=== PATIENT | female | born 1960 | race Caucasian/White ===

== ENCOUNTER → 2016-12-13 | Outpatient (CLI) | payer OTHER ==
[~2016-12-13] MED LIST: ACET-1757 PO; BISA10SU2 PR; BUDE10.2 IH; BUTA1CAP28 PO; CLON-364 PO; DEXA4TAB PO; DOCU-30 PO; GADOBUTROL 7.5 MMOL/7.5 ML PFS ONE; LANS30CA PO; LEVE500T8 PO; MAGN400O4 PO; MINO100C PO; PANT40TA5 PO; PROM25AM2 IM; SENN1TAB35 PO; SIMV20TA3 PO; SUMA50TA4 PO; TEMA15CA PO; ZAFI20TA12 PO
== END | disposition home or self-care (01) ==
LOC: CFH 08:27
PROVIDERS: ATTEND Internal Medicine Hematology & Oncology
DX: C71.9 Malignant neoplasm of brain, unspecified (principal)
CPT/HCPCS: 70553; A9585

== ENCOUNTER → 2017-03-21 | Outpatient (CLI) | payer OTHER | END | disposition home or self-care (01) | LOC: RAD 12:48 | PROVIDERS: ATTEND Internal Medicine Hematology & Oncology | DX: C71.9 Malignant neoplasm of brain, unspecified (principal) | CPT/HCPCS: 70553; A9585 ==

== ENCOUNTER → 2017-09-05 | Outpatient (CLI) | payer OTHER ==
[~2017-09-05] MED LIST changes: +DOCU-131 PO; -DOCU-30 PO; -MAGN400O4 PO; +MAGN400O7 PO
== END | disposition home or self-care (01) ==
LOC: CFH 11:57
PROVIDERS: ATTEND Internal Medicine Hematology & Oncology
DX: C71.9 Malignant neoplasm of brain, unspecified (principal); Z98.890 Other specified postprocedural states
CPT/HCPCS: 70553; A9585

== ENCOUNTER → 2018-04-23 | Outpatient (CLI) | payer OTHER | END | disposition home or self-care (01) | LOC: CFH 08:14 | PROVIDERS: ATTEND Internal Medicine Hematology & Oncology | DX: G93.89 Other specified disorders of brain (principal); R90.82 White matter disease, unspecified; C71.9 Malignant neoplasm of brain, unspecified; J44.9 Chronic obstructive pulmonary disease, unspecified | CPT/HCPCS: 70553; A9585 ==

== ENCOUNTER → 2018-06-24 | Outpatient (CLI) | payer OTHER ==
[~2018-06-24] MED LIST changes: -CLON-364 PO; +CLON0.5T11 PO
== END | disposition home or self-care (01) ==
LOC: CFH 09:56
PROVIDERS: ATTEND Internal Medicine Hematology & Oncology
DX: G93.89 Other specified disorders of brain (principal); C71.9 Malignant neoplasm of brain, unspecified; J44.9 Chronic obstructive pulmonary disease, unspecified
CPT/HCPCS: 70553; A9585

== ENCOUNTER → 2018-10-22 | Outpatient (CLI) | payer OTHER ==
[~2018-10-22] MED LIST changes: +GADOBUTROL 10 MMOL/10 ML PFS ONE; -GADOBUTROL 7.5 MMOL/7.5 ML PFS ONE
== END | disposition home or self-care (01) ==
LOC: CFH 13:10
PROVIDERS: ATTEND Internal Medicine Hematology & Oncology
DX: C71.9 Malignant neoplasm of brain, unspecified (principal); G93.89 Other specified disorders of brain
CPT/HCPCS: 70553; A9585

== ENCOUNTER → 2019-02-10 | Outpatient (CLI) | payer OTHER ==
[~2019-02-10] MED LIST changes: -GADOBUTROL 10 MMOL/10 ML PFS ONE; +GADOBUTROL 7.5 MMOL/7.5 ML PFS ONE
== END | disposition home or self-care (01) ==
LOC: CFH 15:24
PROVIDERS: ATTEND Internal Medicine Hematology & Oncology
DX: C71.1 Malignant neoplasm of frontal lobe (principal); G93.89 Other specified disorders of brain
CPT/HCPCS: 70553; A9585

== ENCOUNTER → 2019-02-27 | Outpatient (CLI) | payer OTHER ==
[~2019-02-27] MED LIST changes: +ALBU8.5H8 INH; +BUDE10.2 INH; -GADOBUTROL 7.5 MMOL/7.5 ML PFS ONE; +LEVE500T53 PO; +SCOP1PAT11 TD
[2019-02-27 12:28] LABS: BASOPHILS # (AUTO) 0.02 x10^3/uL (0-0.1); BASOPHILS % (AUTO) 0 % (0-1); EOSINOPHILS # (AUTO) 0.25 x10^3/uL (0-0.4); EOSINOPHILS % (AUTO) 4 % (1-7); LYMPHOCYTES # (AUTO) 1.94 x10^3/uL (1-3.4); LYMPHOCYTES % (AUTO) 33 % (22-44); MD NO; MEAN CORPUSCULAR HEMOGLOBIN 31.3 pg (27.0-34.8); MEAN CORPUSCULAR HGB CONC 32.5 g/dL (32.4-35.8); MEAN CORPUSCULAR VOLUME 96.2 fL (80-100); MEAN PLATELET VOLUME 6.9 fL (7.4-10.4); MONOCYTES # (AUTO) 0.44 x10^3/uL (0.2-0.8); MONOCYTES % (AUTO) 8 % (2-9); NEUTROPHILS # (AUTO) 3.27 x10^3/uL (1.8-6.8); NEUTROPHILS % (AUTO) 55 % (42-75); PLATELET COUNT 176 x10^3/uL (130-400)
[2019-02-27 12:36] LABS: INTERNATIONAL NORMALIZED RATIO 0.91 (0.93-1.1); PROTHROMBIN TIME 9.6 Seconds (9.6-11.5)
[2019-02-27 12:39] LABS: CHLORIDE 110 mmol/L (98-107)
[2019-02-27 12:47] LABS: MICROSCOPIC AUTO
[2019-02-27 12:49] LABS: ALANINE AMINOTRANSFERASE 28 U/L (12-78); ALBUMIN 3.9 g/dL (3.4-5.0); ALKALINE PHOSPHATASE 66 U/L (45-117); ANION GAP 4 mmol/L (5-15); BILIRUBIN,TOTAL 0.4 mg/dL (0.2-1.0); CALCIUM 9.3 mg/dL (8.5-10.1); CREATININE 1.09 mg/dL (0.55-1.02); TOTAL PROTEIN 7.5 g/dL (6.4-8.2)
[2019-02-27 14:04] LABS: CULTURE INDICATED? YES
== END | disposition home or self-care (01) ==
LOC: STAR 10:47
PROVIDERS: ATTEND Neurological Surgery
DX: Z01.818 Encounter for other preprocedural examination (principal); R91.8 Other nonspecific abnormal finding of lung field; C71.9 Malignant neoplasm of brain, unspecified
CPT/HCPCS: 36415; 71046; 80053; 81001; 85025; 85610; 85730; 87086; 93005

== ENCOUNTER 2019-04-07 12:00 | Inpatient (IN) | payer OTHER ==
[~2019-04-07] VITALS: Ht 167.6 cm; Wt 68.1 kg
[~2019-04-07 12:00] MED LIST changes: +DEXA4TAB66 PO
[2019-04-07] MEDS ORDERED: SODIUM CHLORIDE 0.9% 1,000 ML IV ONE (12:41)
--- NOTE | 2019-04-07 12:44 | NUR ---
Pt arrived by family; pt has history of recurrent glioblastoma; worsening drinking; worsening mentation (decrease vocalizations) and decline in fluid intake has caused family to worry; provider to bedside; discussed different treatment options; agreeable to basic labs and worries over specific scans and prefer to have them discuss with oncologist; vss; patient nonverbal at this time only responds to groans; and doesn't follow commands.
[2019-04-07] MEDS ORDERED: SODIUM CHLORIDE FLUSH 10ML SYR IVF ONE (13:00)
--- NOTE | 2019-04-07 13:07 | NUR ---
Pt to CT
--- NOTE | 2019-04-07 13:38 | NUR ---
UA COLLECTED VIA STRAIGHT CATH AND SENT TO LAB.
[2019-04-07 13:52] LABS: MICROSCOPIC NOT IND
[2019-04-07 13:56] LABS: CULTURE INDICATED? NO
[2019-04-07 14:09] LABS: ALANINE AMINOTRANSFERASE 33 U/L (12-78); ANION GAP 5 mmol/L (5-15); CALCIUM 8.3 mg/dL (8.5-10.1); CHLORIDE 107 mmol/L (98-107)
[2019-04-07 14:10] LABS: INTERNATIONAL NORMALIZED RATIO 0.89 (0.93-1.1)
[2019-04-07 14:12] LABS: ALKALINE PHOSPHATASE 56 U/L (45-117); BILIRUBIN,TOTAL 0.6 mg/dL (0.2-1.0); CREATININE 0.98 mg/dL (0.55-1.02); TOTAL PROTEIN 6.4 g/dL (6.4-8.2)
--- NOTE | 2019-04-07 14:37 | NUR ---
Eric vilchis in [facility] - 04/07/19 at 1445 by [email or web address] all results back at this time. chart up for recheck.
[2019-04-07 14:40] LABS: PROTHROMBIN TIME 9.4 Seconds (9.6-11.5)
[2019-04-07 14:43] LABS: MEAN CORPUSCULAR HEMOGLOBIN 31.9 pg (27.0-34.8); MEAN CORPUSCULAR HGB CONC 33.5 g/dL (32.4-35.8); MEAN CORPUSCULAR VOLUME 95.3 fL (80-100); MEAN PLATELET VOLUME 6.9 fL (7.4-10.4); PLATELET COUNT 75 x10^3/uL (130-400); RED BLOOD COUNT 4.94 x10^6/uL (3.82-5.3); RED CELL DISTRIBUTION WIDTH 14.9 % (9.6-15.2)
[2019-04-07 14:45] LABS: BASOPHILS # (AUTO) 0.02 x10^3/uL (0-0.1); BASOPHILS % (AUTO) 0 % (0-1); EOSINOPHILS # (AUTO) 0.08 x10^3/uL (0-0.4); EOSINOPHILS % (AUTO) 1 % (1-7); LYMPHOCYTES % (AUTO) 16 % (22-44); MD SCAN; MONOCYTES # (AUTO) 0.59 x10^3/uL (0.2-0.8); MONOCYTES % (AUTO) 9 % (2-9); NEUTROPHILS # (AUTO) 4.94 x10^3/uL (1.8-6.8); NEUTROPHILS % (AUTO) 73 % (42-75)
--- NOTE | 2019-04-07 14:56 | NUR ---
Family at bedside; patient calm; no understandable verbalizations; blood pressures readings artificially high as patient insists on lying on blood pressure cuff; attempts to reposition are declined by family. Family is calm and reports no distress at this time; no needs.
[2019-04-07] MEDS ORDERED: SODIUM CHLORIDE FLUSH 10ML SYR IVF PRN (15:30)
[2019-04-07] MEDS ORDERED: DEXA2TAB PO (16:14)
[2019-04-07] MEDS ORDERED: ALBU8.5H8 INH (16:24)
[2019-04-07] MEDS ORDERED: LANS30TA8 PO (16:24)
[2019-04-07] MEDS ORDERED: SIMV20TA3 PO (16:24)
[2019-04-07] MEDS ORDERED: LEVE500T8 PO (16:24)
[2019-04-07] MEDS ORDERED: ZAFI20TA12 PO (16:24)
[2019-04-07] MEDS ORDERED: BUDE10.2 INH (16:24)
[2019-04-07] MEDS ORDERED: BISACODYL 10 MG SUPP PR PRN (18:00)
[2019-04-07] MEDS ORDERED: ONDANSETRON 2MG/ML, 2ML IVPush PRN (18:00)
[2019-04-07] MEDS ORDERED: ACETAMINOPHEN 325 MG TABLET PO PRN (18:00)
[2019-04-07] MEDS ORDERED: ENALAPRILAT 1.25 MG/ML, 2ML IVPush PRN (18:00)
[2019-04-07] MEDS ORDERED: LABETALOL 5 MG/ML SYRINGE IVPush PRN (18:00)
[2019-04-07] MEDS ORDERED: HALOPERIDOL 1 MG TABLET PO PRN (18:00)
[2019-04-07] MEDS ORDERED: morphine SULFATE 10 MG/ML, 1ML IVPush PRN (18:00)
[2019-04-07] MEDS ORDERED: GABAPENTIN 300 MG CAPSULE PO PRN (18:00)
[2019-04-07] MEDS ORDERED: POLYETHYLENE GLYCOL 17 GM PACKET PO PRN (18:00)
[2019-04-07] MEDS: LACTULOSE 10 GM/15 ML UDC PO PRN (18:10)
[2019-04-07 19:04] VITALS: BP 141/92
[2019-04-07] MEDS: SIMVASTATIN 20 MG TABLET PO SCH (20:11)
[2019-04-07] MEDS: ZAFIRLUKAST 20 MG TABLET PO SCH (20:11)
[2019-04-07] MEDS: LEVETIRACETAM 500 MG TABLET PO SCH (20:11)
[2019-04-07] MEDS: HALOPERIDOL 5 MG TABLET PO PRN (20:12)
[2019-04-08 00:03] VITALS: BP 145/98
[2019-04-08] MEDS: SODIUM CHLORIDE 0.9% 1,000 ML IV SCH ×2 (06:32→17:00)
[2019-04-08 06:38] LABS: ALANINE AMINOTRANSFERASE 32 U/L (12-78); ANION GAP 8 mmol/L (5-15); CALCIUM 8.4 mg/dL (8.5-10.1); CHLORIDE 111 mmol/L (98-107); CREATININE 0.91 mg/dL (0.55-1.02)
[2019-04-08 06:40] LABS: ALKALINE PHOSPHATASE 58 U/L (45-117); BILIRUBIN,TOTAL 0.7 mg/dL (0.2-1.0)
[2019-04-08 06:52] LABS: BASOPHILS # (AUTO) 0.01 x10^3/uL (0-0.1); BASOPHILS % (AUTO) 0 % (0-1); EOSINOPHILS # (AUTO) 0.04 x10^3/uL (0-0.4); EOSINOPHILS % (AUTO) 1 % (1-7); LYMPHOCYTES # (AUTO) 0.94 x10^3/uL (1-3.4); LYMPHOCYTES % (AUTO) 18 % (22-44); MD SCAN; MEAN CORPUSCULAR HEMOGLOBIN 31.1 pg (27.0-34.8); MEAN CORPUSCULAR VOLUME 94.3 fL (80-100); MEAN PLATELET VOLUME 6.5 fL (7.4-10.4); MONOCYTES # (AUTO) 0.48 x10^3/uL (0.2-0.8); MONOCYTES % (AUTO) 9 % (2-9); NEUTROPHILS # (AUTO) 3.65 x10^3/uL (1.8-6.8); NEUTROPHILS % (AUTO) 71 % (42-75); PLATELET COUNT 70 x10^3/uL (130-400); RED BLOOD COUNT 4.83 x10^6/uL (3.82-5.3); RED CELL DISTRIBUTION WIDTH 14.9 % (9.6-15.2)
[2019-04-08 07:25] VITALS: BP 141/91
[2019-04-08] MEDS: LACTULOSE 10 GM/15 ML UDC PO PRN (08:20)
[2019-04-08] MEDS: SENNA/DOCUSATE TABLET PO SCH (08:21)
[2019-04-08] MEDS: ZAFIRLUKAST 20 MG TABLET PO SCH ×2 (08:21→19:24)
[2019-04-08] MEDS: DEXAMETHASONE 4 MG TABLET PO SCH (08:21)
[2019-04-08] MEDS: LEVETIRACETAM 500 MG TABLET PO SCH ×2 (08:21→19:24)
[2019-04-08] MEDS ORDERED: LORazepam 2 MG/ML, 1ML IVPush ONE (10:00)
[2019-04-08] MEDS: HALOPERIDOL 5 MG TABLET PO PRN ×2 (10:54→19:24)
[2019-04-08 15:13] VITALS: BP 147/98
[2019-04-08 18:41] VITALS: BP 109/72
[2019-04-08] MEDS: SIMVASTATIN 20 MG TABLET PO SCH (19:24)
[2019-04-09 03:34] VITALS: BP 136/85
[2019-04-09 04:56] LABS: MEAN CORPUSCULAR HEMOGLOBIN 31.3 pg (27.0-34.8); MEAN CORPUSCULAR HGB CONC 32.8 g/dL (32.4-35.8); MEAN CORPUSCULAR VOLUME 95.2 fL (80-100); MEAN PLATELET VOLUME 6.9 fL (7.4-10.4); PLATELET COUNT 66 x10^3/uL (130-400)
[2019-04-09 05:01] LABS: ANION GAP 7 mmol/L (5-15); CALCIUM 8.7 mg/dL (8.5-10.1); CHLORIDE 113 mmol/L (98-107); CREATININE 0.93 mg/dL (0.55-1.02)
[2019-04-09 05:45] LABS: BASOPHILS # (AUTO) 0.01 x10^3/uL (0-0.1); BASOPHILS % (AUTO) 0 % (0-1); EOSINOPHILS # (AUTO) 0.02 x10^3/uL (0-0.4); EOSINOPHILS % (AUTO) 1 % (1-7); LYMPHOCYTES % (AUTO) 20 % (22-44); MD SCAN; MONOCYTES # (AUTO) 0.47 x10^3/uL (0.2-0.8); MONOCYTES % (AUTO) 10 % (2-9); NEUTROPHILS # (AUTO) 3.43 x10^3/uL (1.8-6.8); NEUTROPHILS % (AUTO) 70 % (42-75)
[2019-04-09] MEDS ORDERED: LACTULOSE 20 GM/30 ML UDC PO PRN (08:00)
[2019-04-09] MEDS ORDERED: POLY17PO5 PO (08:03)
[2019-04-09] MEDS ORDERED: BISA10SU13 PR (08:03)
[2019-04-09] MEDS ORDERED: LACT20SO13 PO (08:03)
[2019-04-09] MEDS ORDERED: SENN1TAB19 PO (08:03)
[2019-04-09 08:26] VITALS: BP 116/79
[2019-04-09] MEDS ORDERED: FAMOTIDINE 20 MG TABLET PO SCH (09:00)
[2019-04-09] MEDS: DEXAMETHASONE 4 MG TABLET PO SCH (09:30)
[2019-04-09] MEDS: SENNA/DOCUSATE TABLET PO SCH (09:30)
[2019-04-09] MEDS: ZAFIRLUKAST 20 MG TABLET PO SCH (09:30)
[2019-04-09] MEDS: LEVETIRACETAM 500 MG TABLET PO SCH (09:30)
[2019-04-09] MEDS ORDERED: CALCIUM CARBONATE 500 MG TAB.CHEW PO PRN (10:00)
== END 2019-04-09 12:09 | disposition home health service (06) | DRG 70 ==
LOC: ED 14:04 → EDIP 15:01 → UNDOADMIN 15:01 → 3NW 15:36 → ED 15:36 → EDIP 15:36 → DCLOUNGE 04-09 12:00
PROVIDERS: ADMIT Hospitalist; ATTEND Internal Medicine
DX: G93.41 Metabolic encephalopathy (principal); G93.6 Cerebral edema; C71.1 Malignant neoplasm of frontal lobe; R47.01 Aphasia; K56.41 Fecal impaction; T45.1X5A Adverse effect of antineoplastic and immunosuppressive drugs, initial encounter; F32.9 Major depressive disorder, single episode, unspecified; G43.909 Migraine, unspecified, not intractable, without status migrainosus; Z66 Do not resuscitate; J45.20 Mild intermittent asthma, uncomplicated; F41.9 Anxiety disorder, unspecified; E86.0 Dehydration; E78.5 Hyperlipidemia, unspecified; D69.59 Other secondary thrombocytopenia; Z95.828 Presence of other vascular implants and grafts; Z86.718 Personal history of other venous thrombosis and embolism; Z92.3 Personal history of irradiation; Z85.841 Personal history of malignant neoplasm of brain; Y92.89 Other specified places as the place of occurrence of the external cause; Z88.2 Allergy status to sulfonamides; Z88.8 Allergy status to other drugs, medicaments and biological substances
CPT/HCPCS: 36415; 70450; 74018; 74022; 80048; 80053; 81003; 83690; 83735; 84100; 85025; 85610; 85730; G0378; 92523-GN; J7030

== ENCOUNTER 2019-05-06 07:51 | Emergency (ER) | payer MEDICARE, OTHER ==
[~2019-05-06] VITALS: Ht 170.2 cm; Wt 72.7 kg
[2019-05-06 11:09] VITALS: BP 129/86
== END 2019-05-06 12:10 | disposition home or self-care (01) ==
LOC: ED 09:56
DX: G40.209 Localization-related (focal) (partial) symptomatic epilepsy and epileptic syndromes with complex partial seizures, not intractable, without status epilepticus (principal); R29.810 Facial weakness; R42 Dizziness and giddiness; F41.1 Generalized anxiety disorder; F32.9 Major depressive disorder, single episode, unspecified; Z85.841 Personal history of malignant neoplasm of brain; Z86.718 Personal history of other venous thrombosis and embolism
CPT/HCPCS: 36415; 70450; 70496; 70498; 80047; 80185; 81003; 82962; 84484; 85025; 85610; 85730; 93005; 96365; 99284; J1953; Q9967; 96360

== ENCOUNTER 2019-08-07 13:34 | Emergency (ER) | payer OTHER ==
[~2019-08-07] VITALS: Ht 167.6 cm; Wt 73.3 kg
[~2019-08-07 13:34] MED LIST changes: -ACET-1757 PO; +ACET-2065 PO; +BISA10SU14 PR; -BISA10SU2 PR; +BISA10SU4 PR; +DEXA2TAB PO; +LACT20SO13 PO; +LANS30TA8 PO; -MINO100C PO; +MINO100C61 PO; +OMEP-110 PO; +POLY17PO5 PO; +SENN-193 PO
[2019-08-07 13:50] VITALS: BP 141/89
--- NOTE | 2019-08-07 14:35 | NUR ---
PT RECENTLY FELL AND BIT LIP ON LANDING. PRESENT WITH SWOLLEN BOTTOM LIP. NADN. RESTING ON GURNEY. FAMILY AT BEDSIDE. HAS PAIN IN HER BACK.
== END 2019-08-07 15:18 | disposition home or self-care (01) ==
LOC: ED 15:12
DX: S29.012A Strain of muscle and tendon of back wall of thorax, initial encounter (principal); G89.11 Acute pain due to trauma; F32.9 Major depressive disorder, single episode, unspecified; Z86.73 Personal history of transient ischemic attack (TIA), and cerebral infarction without residual deficits; W01.0XXA Fall on same level from slipping, tripping and stumbling without subsequent striking against object, initial encounter; Y93.89 Activity, other specified; Y92.89 Other specified places as the place of occurrence of the external cause; Y99.8 Other external cause status
CPT/HCPCS: 72072; 99283

== ENCOUNTER 2019-08-28 11:14 | Emergency (ER) | payer OTHER ==
[~2019-08-28] VITALS: Ht 167.6 cm; Wt 73.7 kg
--- NOTE | 2019-08-28 11:54 | NUR ---
DR. BRIGGS AT BEDSIDE. PT C/O TABARES WITH NAUSEA SINCE 9 AM. PT HAS HX OF GLIOBLASTOMA DIAGNOSED 3.5 YEARS AGO BEING TREATED NOW WITH CHEMO AND RADIATION. WAITING FOR MD ORDERS. PT AMBULATED TO THE ROOM.
[2019-08-28] MEDS ORDERED: HYDROmorphone 1 MG/ML, 1ML INJ IM ONE (12:00)
[2019-08-28] MEDS ORDERED: ONDANSETRON ODT 8 MG PO ONE (12:00)
[2019-08-28] MEDS ORDERED: HYDROmorphone 1 MG/ML, 1ML VIAL ONE (12:07)
[2019-08-28] MEDS ORDERED: ONDANSETRON ODT 8 MG ONE (12:07)
--- NOTE | 2019-08-28 12:16 | NUR ---
PT MEDICATED ORDERED. WAITING FOR CT.
--- NOTE | 2019-08-28 12:23 | NUR ---
REPORT RECIEVED FROM MARTHA ISSA. ASSUMED CARE OF PT.
[2019-08-28 13:29] VITALS: BP 111/76
== END 2019-08-28 14:30 | disposition home or self-care (01) ==
LOC: ED 13:13
DX: R51 Headache (principal); Z86.73 Personal history of transient ischemic attack (TIA), and cerebral infarction without residual deficits; Z86.718 Personal history of other venous thrombosis and embolism
CPT/HCPCS: 70450; 96372; 99284; J1170; Q0162

== ENCOUNTER 2019-10-03 21:11 | Emergency (ER) | payer MEDICARE, OTHER ==
[~2019-10-03] VITALS: Ht 165.1 cm; Wt 72.0 kg
--- NOTE | 2019-10-03 21:24 | NUR ---
PT BIBA TO ED FROM HOME W MOTHER. GOT UP, NEEDED ASSISTANCE TO BATHROOM, INCONTINENT OF URINE. ALSO DROOLED A LITTLE. BASELINE CONFUSED R/T GLIOBLASTOMA AND CRANI. PER MOM AT BASELINE NOW. VSS. CRUMB IN ROOM FOR EVAL. LABS/UA/PROBABLY ADMITTED. CALL YO/SIDE RAILS.
[2019-10-03] MEDS ORDERED: SODIUM CHLORIDE 0.9% 1,000ML IVBOLUS ONE (21:30)
[2019-10-03] MEDS ORDERED: SODIUM CHLORIDE FLUSH 10ML SYR IVF ONE (21:30)
--- NOTE | 2019-10-03 22:00 | NUR ---
piv est ivf infusing pt to rad. plan for straight cath. family at bedside. updated on poc. as
--- NOTE | 2019-10-03 22:04 | NUR ---
bandaid on L arm-bruise, broken skin. pt/fam don't know what caused it. small amt yellow exudate. as
[2019-10-03 22:17] LABS: ALBUMIN 3.6 g/dL (3.4-5.0); ANION GAP 3 mmol/L (5-15); CALCIUM 9.2 mg/dL (8.5-10.1); CHLORIDE 111 mmol/L (98-107)
[2019-10-03 22:18] LABS: CREATININE 1.05 mg/dL (0.55-1.02)
[2019-10-03 22:24] LABS: MEAN CORPUSCULAR HEMOGLOBIN 31.8 pg (27.0-34.8); MEAN CORPUSCULAR HGB CONC 32.4 g/dL (32.4-35.8); MEAN CORPUSCULAR VOLUME 98.2 fL (80-100); MEAN PLATELET VOLUME 6.7 fL (7.4-10.4); PLATELET COUNT 93 x10^3/uL (130-400); RED BLOOD COUNT 4.92 x10^6/uL (3.82-5.3); RED CELL DISTRIBUTION WIDTH 16.1 % (9.6-15.2)
--- NOTE | 2019-10-03 22:26 | NUR ---
straight cathed, ua sent. as
[2019-10-03 22:33] LABS: MICROSCOPIC NOT IND
[2019-10-03 22:41] LABS: CULTURE INDICATED? NO
[2019-10-03 22:54] LABS: BASOPHILS # (AUTO) 0.01 x10^3/uL (0-0.1); BASOPHILS % (AUTO) 0 % (0-1); EOSINOPHILS # (AUTO) 0.09 x10^3/uL (0-0.4); EOSINOPHILS % (AUTO) 1 % (1-7); LYMPHOCYTES # (AUTO) 2.48 x10^3/uL (1-3.4); LYMPHOCYTES % (AUTO) 38 % (22-44); MD SCAN; MONOCYTES # (AUTO) 0.55 x10^3/uL (0.2-0.8); MONOCYTES % (AUTO) 8 % (2-9); NEUTROPHILS # (AUTO) 3.47 x10^3/uL (1.8-6.8); NEUTROPHILS % (AUTO) 53 % (42-75)
[2019-10-03 23:33] VITALS: BP 153/95
== END 2019-10-04 00:12 | disposition home or self-care (01) ==
LOC: ED 22:47
DX: R41.82 Altered mental status, unspecified (principal); Z85.841 Personal history of malignant neoplasm of brain; Z86.73 Personal history of transient ischemic attack (TIA), and cerebral infarction without residual deficits; Z86.718 Personal history of other venous thrombosis and embolism
CPT/HCPCS: 36415; 70450; 80048; 81003; 82040; 85025; 99284; J7030

== ENCOUNTER 2019-10-14 10:26 | Outpatient (CLI) | payer MEDICARE ==
[~2019-10-14 10:26] MED LIST changes: +LEVE100S6 PO
== END 2019-10-14 23:59 | disposition home or self-care (01) ==
LOC: CFH 10:26
PROVIDERS: ATTEND Internal Medicine Hematology & Oncology
DX: Z02.9 Encounter for administrative examinations, unspecified (principal)

== ENCOUNTER 2019-10-14 14:24 | Outpatient (CLI) | payer MEDICARE | END 2019-10-14 23:59 | disposition home or self-care (01) | LOC: ROC 14:24 | PROVIDERS: ATTEND Radiology Radiation Oncology | DX: C71.1 Malignant neoplasm of frontal lobe (principal); Z92.3 Personal history of irradiation; J45.909 Unspecified asthma, uncomplicated; G43.909 Migraine, unspecified, not intractable, without status migrainosus; Z85.828 Personal history of other malignant neoplasm of skin | CPT/HCPCS: 99214; G0463 ==

== ENCOUNTER → 2019-10-20 | Outpatient (CLI) | payer MEDICARE ==
[~2019-10-20] MED LIST changes: +GADOTERATE 7.5 MMOL/15 ML SYR ONE
== END | disposition home or self-care (01) ==
LOC: CFH 11:21
PROVIDERS: ATTEND Radiology Radiation Oncology
DX: C71.9 Malignant neoplasm of brain, unspecified (principal)
CPT/HCPCS: 70553; A9575

== ENCOUNTER 2019-12-16 08:38 | Outpatient (CLI) | payer MEDICARE ==
[~2019-12-16 08:38] MED LIST changes: +CLON-364 PO; -CLON0.5T11 PO; +ENOX80SY4 SQ; -GADOTERATE 7.5 MMOL/15 ML SYR ONE; +RIVA15TA PO; +SIMV20TA19 PO; -SIMV20TA3 PO
== END 2019-12-16 23:59 | disposition home or self-care (01) ==
LOC: ROC 08:38
PROVIDERS: ATTEND Radiology Radiation Oncology
DX: C71.1 Malignant neoplasm of frontal lobe (principal); C71.9 Malignant neoplasm of brain, unspecified
CPT/HCPCS: 99213; G0463

== ENCOUNTER 2020-01-07 09:05 | Outpatient (CLI) | payer MEDICARE ==
[2020-01-07] MEDS ORDERED: GADOTERATE 7.5 MMOL/15 ML SYR ONE (11:00)
== END 2020-01-07 23:59 | disposition home or self-care (01) ==
LOC: RAD 09:05
PROVIDERS: ATTEND Radiology Radiation Oncology
DX: C71.9 Malignant neoplasm of brain, unspecified (principal); G93.89 Other specified disorders of brain; G31.89 Other specified degenerative diseases of nervous system
CPT/HCPCS: 70553; A9575

== ENCOUNTER 2020-01-13 09:12 | Outpatient (CLI) | payer MEDICARE | END 2020-01-13 23:59 | disposition home or self-care (01) | LOC: ROC 09:12 | PROVIDERS: ATTEND Radiology Radiation Oncology | DX: C71.1 Malignant neoplasm of frontal lobe (principal); C71.9 Malignant neoplasm of brain, unspecified | CPT/HCPCS: 99213; G0463 ==

== ENCOUNTER 2020-02-14 14:04 | Observation (INO) | payer MEDICARE ==
[~2020-02-14] VITALS: Ht 165.1 cm; Wt 75.7 kg
[2020-02-14] MEDS ORDERED: SODIUM CHLORIDE FLUSH 10ML SYR IVF ONE (14:30)
[2020-02-14] MEDS ORDERED: ONDANSETRON 2MG/ML, 2ML IVPush ONE (14:30)
[2020-02-14 15:03] LABS: BASOPHILS # (AUTO) 0.04 x10^3/uL (0-0.1); BASOPHILS % (AUTO) 1 % (0-1); EOSINOPHILS # (AUTO) 0.06 x10^3/uL (0-0.4); EOSINOPHILS % (AUTO) 1 % (1-7); LYMPHOCYTES % (AUTO) 30 % (22-44); MD NO; MEAN CORPUSCULAR HEMOGLOBIN 32.5 pg (27.0-34.8); MEAN CORPUSCULAR HGB CONC 32.8 g/dL (32.4-35.8); MEAN CORPUSCULAR VOLUME 99.1 fL (80-100); MEAN PLATELET VOLUME 6.9 fL (7.4-10.4); MONOCYTES % (AUTO) 11 % (2-9); NEUTROPHILS # (AUTO) 3.01 x10^3/uL (1.8-6.8); NEUTROPHILS % (AUTO) 57 % (42-75); PLATELET COUNT 118 x10^3/uL (130-400); RED BLOOD COUNT 4.54 x10^6/uL (3.82-5.3)
[2020-02-14 15:12] LABS: ALBUMIN 3.4 g/dL (3.4-5.0); ANION GAP 9 mmol/L (5-15); CALCIUM 9.1 mg/dL (8.5-10.1); CHLORIDE 106 mmol/L (98-107)
[2020-02-14 15:16] LABS: ALANINE AMINOTRANSFERASE 24 U/L (12-78); ALKALINE PHOSPHATASE 52 U/L (45-117); BILIRUBIN,TOTAL 1.2 mg/dL (0.2-1.0); CREATININE 1.05 mg/dL (0.55-1.02); TOTAL PROTEIN 7.2 g/dL (6.4-8.2)
--- NOTE | 2020-02-14 15:37 | NUR ---
THIS PT WAS ROLF AUGUST, COMING FROM HOME, WHERE SHE LIVES WITH HER HUSBAMD. CALLED 911 FOR N/V AND FEVER. PT IS VOMITTING GILE BILE, TEMP OF 99.1. PT IS A&OX1. HX OF BRAIN CA. STATES PT HAS "UPS AND DOWNS" THE PRESENTATION AND MENTATION OF THE PT CURRENTLY IS "NORMAL" FOR HER DOWN DAYS. STATES HE IS NOT CONCERNED ABOUT THIS, ONLY THE N/V AND FEVER. WAS ABLE TO EXPLAIN BRUISING. PT AT BASELINE IS ABLE TO WALK. PT HAS FALLEN TWICE IN THE PAST 2 WEEKS. THE FIRST WAS WHEN SHE WAS LEAVING A DOCTORS APPT, SHE TRIPPED AND BRUISED HER KNEES AND RIGHT HIP. THE SECOND WAS WHEN THE PT GOT SELF UP FROM THE TOILET AND FELL. REPORTS GOING IN TO BATHROOM AND PICKING HER UP, UNDER THE ARMS AND TRANSFERING TO THE CHAIR. IT WAS THIS EVENT THAT LEAD TO LEFT SIDED BRUISING. PT IS ON XARELTO. ALSO REPORTS THAT THERE ARE HOME HEALTH NURSES IN THE HOUSE 3X/WEEK. AT THIS POINT THE STORY MATCHES THE MECHANISM OF INJURY, THE BRUISING IS NOT IN MULTIPLE STAGES. HAS POA. THIS RECORD IS IN THE CHART. STATES "I DO NOT WANT HER TO BE ADMITTED, I WILL SIGN HER OUT MYSELF (AMA)." ERP AWARE.
[2020-02-14] MEDS ORDERED: ONDANSETRON 2MG/ML, 2ML ONE (15:38)
--- NOTE | 2020-02-14 16:26 | NUR ---
Eric vilchis in [facility] - 02/14/20 at 1627 by KERVIN EPS CALLED. SAME INFORMATION IN PREVIOUS NOTE PROVIDED TO EPS.
--- NOTE | 2020-02-14 16:27 | NUR ---
EPS CALLED. SAME INFORMATION IN PREVIOUS NOTE PROVIDED TO EPS.
[2020-02-14 16:34] LABS: MICROSCOPIC INDICATED
--- NOTE | 2020-02-14 16:49 | NUR ---
PT LAYING IN BED, RESPIRATIONS EVEN AND UNLABORED, VSS. AT BEDSIDE READING. WILL CONTINUE TO MONITOR.
--- NOTE | 2020-02-14 17:43 | NUR ---
PT LAYING IN BED, VSS, CONDITIONED UNCHANGED. WILL CONTINUE TO MONITOR.
[2020-02-14] MEDS ORDERED: SODIUM CHLORIDE 0.9% 1,000 ML IV ONE (17:45)
[2020-02-14] MEDS ORDERED: [UNRECOGNIZED DRUG - OTHER] (18:06)
[2020-02-14] MEDS ORDERED: AVASTIN (18:07)
--- NOTE | 2020-02-14 18:07 | NUR ---
ADMITTING MD TO BEDSIDE.
[2020-02-14] MEDS ORDERED: BISACODYL 10 MG SUPP PR PRN (18:30)
[2020-02-14] MEDS ORDERED: ACETAMINOPHEN 325 MG TABLET PO PRN (18:30)
[2020-02-14] MEDS ORDERED: POLYETHYLENE GLYCOL 17 GM PACKET PO PRN (18:30)
[2020-02-14] MEDS ORDERED: ONDANSETRON 2MG/ML, 2ML IVPush PRN (18:30)
[2020-02-14] MEDS ORDERED: LACTULOSE 20 GM/30 ML UDC PO PRN (18:30)
--- NOTE | 2020-02-14 18:30 | NUR ---
REPORT GIVEN TO MARTHA YEPEZ.
--- NOTE | 2020-02-14 18:52 | NUR ---
PT TO IMAGING AND BACK. CONDITION UNCHANGED, REMAINS AT BEDSIDE.
[2020-02-14 19:18] VITALS: BP 138/88
[2020-02-14 20:00] VITALS: BP 138/88
[2020-02-14] MEDS: RIVAROXABAN 15 MG TABLET PO SCH (21:59)
[2020-02-14] MEDS: SIMVASTATIN 20 MG TABLET PO SCH (21:59)
[2020-02-14] MEDS: LEVETIRACETAM 100 MG/ML ORAL SOL PO SCH (21:59)
[2020-02-14] MEDS: SODIUM CHLORIDE 0.9% 1,000 ML IV SCH (22:00)
[2020-02-14] MEDS: ZAFIRLUKAST 20 MG TABLET PO SCH (22:00)
[2020-02-15 01:35] VITALS: BP 147/97
[2020-02-15] MEDS: SODIUM CHLORIDE 0.9% 1,000 ML IV SCH ×3 (05:48→21:34)
[2020-02-15 06:54] VITALS: BP 145/82
[2020-02-15 09:41] LABS: BASOPHILS # (AUTO) 0.03 x10^3/uL (0-0.1); BASOPHILS % (AUTO) 1 % (0-1); EOSINOPHILS % (AUTO) 2 % (1-7); LYMPHOCYTES % (AUTO) 32 % (22-44); MD NO; MEAN CORPUSCULAR HEMOGLOBIN 32.3 pg (27.0-34.8); MEAN CORPUSCULAR HGB CONC 32.6 g/dL (32.4-35.8); MEAN CORPUSCULAR VOLUME 99.1 fL (80-100); MEAN PLATELET VOLUME 6.8 fL (7.4-10.4); MONOCYTES # (AUTO) 0.65 x10^3/uL (0.2-0.8); MONOCYTES % (AUTO) 13 % (2-9); NEUTROPHILS # (AUTO) 2.65 x10^3/uL (1.8-6.8); NEUTROPHILS % (AUTO) 53 % (42-75); PLATELET COUNT 112 x10^3/uL (130-400); RED BLOOD COUNT 4.07 x10^6/uL (3.82-5.3); RED CELL DISTRIBUTION WIDTH 18.2 % (9.6-15.2)
[2020-02-15 09:47] LABS: ANION GAP 6 mmol/L (5-15); CALCIUM 8.3 mg/dL (8.5-10.1); CHLORIDE 109 mmol/L (98-107); CREATININE 0.91 mg/dL (0.55-1.02)
[2020-02-15] MEDS: SENNA/DOCUSATE TABLET PO SCH (11:50)
[2020-02-15] MEDS: RIVAROXABAN 15 MG TABLET PO SCH (11:51)
[2020-02-15] MEDS: ZAFIRLUKAST 20 MG TABLET PO SCH ×2 (11:51→20:37)
[2020-02-15] MEDS: LEVETIRACETAM 100 MG/ML ORAL SOL PO SCH ×2 (11:51→20:37)
[2020-02-15] MEDS: PANTOPRAZOLE 40MG TABLET PO SCH (11:51)
[2020-02-15] MEDS: DEXAMETHASONE 1 MG TABLET PO SCH (11:52)
[2020-02-15 12:19] VITALS: BP 138/89
[2020-02-15 18:28] VITALS: BP 138/80
[2020-02-15] MEDS: SIMVASTATIN 20 MG TABLET PO SCH (20:37)
[2020-02-15] MEDS ORDERED: LEVETIRACETAM 750 MG in SODIUM CHLORIDE 0.9% 100 ML IV PRN (21:00)
[2020-02-16 01:07] VITALS: BP 151/92
[2020-02-16] MEDS: SODIUM CHLORIDE 0.9% 1,000 ML IV SCH ×2 (05:48→14:00)
[2020-02-16 06:21] LABS: ANION GAP 6 mmol/L (5-15); CALCIUM 8.4 mg/dL (8.5-10.1); CHLORIDE 107 mmol/L (98-107); CREATININE 0.73 mg/dL (0.55-1.02)
[2020-02-16 06:29] LABS: MEAN CORPUSCULAR HEMOGLOBIN 32.4 pg (27.0-34.8); MEAN CORPUSCULAR HGB CONC 32.9 g/dL (32.4-35.8); MEAN CORPUSCULAR VOLUME 98.3 fL (80-100); MEAN PLATELET VOLUME 7.2 fL (7.4-10.4); PLATELET COUNT 99 x10^3/uL (130-400); RED BLOOD COUNT 4.04 x10^6/uL (3.82-5.3); RED CELL DISTRIBUTION WIDTH 17.4 % (9.6-15.2)
[2020-02-16 06:58] LABS: BASOPHILS # (AUTO) 0.02 x10^3/uL (0-0.1); BASOPHILS % (AUTO) 0 % (0-1); EOSINOPHILS # (AUTO) 0.07 x10^3/uL (0-0.4); EOSINOPHILS % (AUTO) 1 % (1-7); LYMPHOCYTES # (AUTO) 1.47 x10^3/uL (1-3.4); LYMPHOCYTES % (AUTO) 29 % (22-44); MD SCAN; MONOCYTES # (AUTO) 0.52 x10^3/uL (0.2-0.8); MONOCYTES % (AUTO) 10 % (2-9); NEUTROPHILS # (AUTO) 2.94 x10^3/uL (1.8-6.8); NEUTROPHILS % (AUTO) 59 % (42-75)
[2020-02-16 07:12] VITALS: BP 151/85
[2020-02-16 07:17] LABS: ALANINE AMINOTRANSFERASE 20 U/L (12-78); ALBUMIN 2.8 g/dL (3.4-5.0)
[2020-02-16 07:19] LABS: ALKALINE PHOSPHATASE 45 U/L (45-117); BILIRUBIN,TOTAL 0.6 mg/dL (0.2-1.0); TOTAL PROTEIN 6.3 g/dL (6.4-8.2)
[2020-02-16] MEDS ORDERED: RIVAROXABAN 20 MG TABLET PO SCH (08:00)
[2020-02-16] MEDS: ZAFIRLUKAST 20 MG TABLET PO SCH (08:08)
[2020-02-16] MEDS: SENNA/DOCUSATE TABLET PO SCH (08:08)
[2020-02-16] MEDS: DEXAMETHASONE 1 MG TABLET PO SCH (08:08)
[2020-02-16] MEDS: PANTOPRAZOLE 40MG TABLET PO SCH (08:08)
[2020-02-16] MEDS: LEVETIRACETAM 100 MG/ML ORAL SOL PO SCH (08:10)
[2020-02-16] MEDS ORDERED: RIVA20TA PO (12:04)
[2020-02-16 12:34] VITALS: BP_SYST 158; BP_SYST 170; BP_DIAS 101; BP_DIAS 99
== END 2020-02-16 16:21 | disposition home or self-care (01) ==
LOC: ED 15:17 → EDIP 17:41 → INTOOBSV 17:41 → 3N 19:59 → 3WST 02-15 21:37
PROVIDERS: ADMIT Family Medicine; ATTEND Family Medicine
DX: C71.9 Malignant neoplasm of brain, unspecified (principal); E86.0 Dehydration; K59.00 Constipation, unspecified; D69.59 Other secondary thrombocytopenia; G93.41 Metabolic encephalopathy; K21.9 Gastro-esophageal reflux disease without esophagitis; Z86.73 Personal history of transient ischemic attack (TIA), and cerebral infarction without residual deficits; Z66 Do not resuscitate; Z79.01 Long term (current) use of anticoagulants; Z79.899 Other long term (current) drug therapy; Z86.718 Personal history of other venous thrombosis and embolism
CPT/HCPCS: 36415; 70450; 74018; 80048; 80053; 81001; 82140; 83605; 83690; 83735; 84100; 85025; 87040; 96361; 96374; 99285; G0378; J2405; J7030

== ENCOUNTER 2020-02-18 15:05 | Emergency (ER) | payer MEDICARE ==
[~2020-02-18] VITALS: Ht 165.1 cm; Wt 70.0 kg
[~2020-02-18 15:05] MED LIST changes: +AVASTIN; -PANT40TA5 PO; +PANT40TA6 PO; +RIVA20TA PO; +[UNRECOGNIZED DRUG - OTHER]
--- NOTE | 2020-02-18 15:24 | NUR ---
PT BIB EMS FOR [facility] [address] FROM HOME HEALTH NURSE. PT RECENT ADMIT/DC FEW DAYS AGO. HAD CLAY DURING STAY, PER EMS, ALSO SUSTAINED FALL IN HOSPITAL. SCATTERED BRUISING THROUOUGHT. PT HAS HX OF GLEOBLASTOMA, PT BASELINE A&OX4, PT ANSWERS YES/NO QUESTIONS AND FOLLOWS DIRECTIONS. PT NONVERBAL, MOANS. PT NOT IN DISTRESS. RESP EVEN AND UNLABORED.
--- NOTE | 2020-02-18 15:59 | NUR ---
UA OBTAINED VIA STRAIGHT CATH, THERWORX USED.
[2020-02-18 16:13] LABS: MICROSCOPIC INDICATED
--- NOTE | 2020-02-18 16:30 | NUR ---
PT RESTING. VSS. AT BEDSIDE
[2020-02-18] MEDS ORDERED: CEFTRIAXONE 1,000 MG ONE (17:20)
[2020-02-18] MEDS ORDERED: CEFTRIAXONE 1,000 MG IM ONE (17:30)
--- NOTE | 2020-02-18 17:57 | NUR ---
AT [facility] DISCUSSING POC
[2020-02-18] MEDS ORDERED: CEFTRIAXONE PMX 1GM/50ML 50 ML ONE (18:12)
[2020-02-18] MEDS ORDERED: SODIUM CHLORIDE FLUSH 10ML SYR IVF ONE (18:30)
[2020-02-18] MEDS ORDERED: CEFTRIAXONE PMX 1GM/50ML 50 ML IVPB ONE (18:30)
[2020-02-18 18:49] LABS: MD YES; MEAN CORPUSCULAR HGB CONC 32.5 g/dL (32.4-35.8); PLATELET COUNT 133 x10^3/uL (130-400); RED BLOOD COUNT 4.55 x10^6/uL (3.82-5.3)
--- NOTE | 2020-02-18 18:49 | NUR ---
UNSURE OF PORT SIZE AND TYPE/ MAY NOT BE SUITABLE FOR MRI, IV TO BE ESTABLISHED. REPORT TO KIRSLYN. MOSQUERA.
--- NOTE | 2020-02-18 18:51 | NUR ---
BEDSIDE REPORT FROM FERNANDO THOMAS, PT CARE ASSUMED AT THIS TIME. PT RESTING IN [place], NAD, RESP WNL, AT , P/W/D, WCTM.
--- NOTE | 2020-02-18 18:56 | NUR ---
PIV established. PT to MRI at this time.
[2020-02-18 18:57] LABS: ALBUMIN 3.3 g/dL (3.4-5.0); ANION GAP 7 mmol/L (5-15); CALCIUM 9.2 mg/dL (8.5-10.1); CHLORIDE 105 mmol/L (98-107); CREATININE 0.97 mg/dL (0.55-1.02)
[2020-02-18] MEDS ORDERED: GADOTERATE 10 MMOL/20 ML SYR ONE (19:24)
--- NOTE | 2020-02-18 19:51 | NUR ---
PT BACK FROM CT RESTING IN [facility] [place], AT BS, NAD, P/W/D, RESP WNL. WCTM. MEDICATED PER NOV.
[2020-02-18 20:03] LABS: BASOS#(MANUAL) 0.05 x10^3/uL (0-0.1); BASOS% (MANUAL) 1 % (0-1); EOS#(MANUAL) 0.11 x10^3/uL (0.0-0.4); EOS% (MANUAL) 2 % (1-7); LYMPH#(MANUAL) 1.08 x10^3/uL (1-3.4); LYMPHS% (MANUAL) 20 % (22-44); MONOS#(MANUAL) 0.27 x10^3/uL (0.3-2.7); MONOS% (MANUAL) 5 % (2-9); SEG#(MANUAL) 3.89 x10^3/uL (1.8-6.8); SEGS% (MANUAL) 72 % (42-75)
[2020-02-18 20:06] LABS: <PLATELET ESTIMATE> ADEQUATE; <PLT MORPHOLOGY> NORMAL PLT MORPH; OVALOCYTES 1+; POLYCHROMASIA 1+
--- NOTE | 2020-02-18 20:41 | NUR ---
PT RESTING IN GURNEY, NAD, RESP WNL, P/W/D, AND BS, CALL LIGHT ON LAP, WCTM. WAITING FOR RECHECK AND DISPO.
[2020-02-18] MEDS ORDERED: LEVETIRACETAM 100 MG/ML ORAL SOL PO ONE (21:30)
[2020-02-18 21:39] VITALS: BP 145/88
--- NOTE | 2020-02-18 21:40 | NUR ---
Patient/Caregiver given discharge instructions and they have confirmed that they understand the instructions. Patient ambulatory with steady gait. GIVEN BRIEFS AND 2 10 ML SYRINGES FOR MEDICATIONS. HELPED CHANGE PT AND WHEELED OUT TO VEHICLE. CAREGIVER/ DENIES ADDITIONAL QUESTIONS AT THIS TIME. NAD, P/W/D, RESP WNL
--- NOTE | 2020-02-18 21:53 | NUR ---
While wheeling out pt began stating "if she throws up again i am bringing her back here" and that "if shes gonna throw up it better be here so you have to clean her up". MD informed and pt caregiver informed that there are no additional interventions we would be performing at this time. Stated he is welcome to come back if needed. Pt caregiver stated that "it was not okay but he understood". given emesis bag. Pt left in stable conditions with no complaints of nausea at this time.
== END 2020-02-18 21:54 | disposition home or self-care (01) ==
LOC: ED 21:04
DX: N30.00 Acute cystitis without hematuria (principal); Z86.718 Personal history of other venous thrombosis and embolism; Z86.73 Personal history of transient ischemic attack (TIA), and cerebral infarction without residual deficits; Z88.2 Allergy status to sulfonamides; Z88.5 Allergy status to narcotic agent
CPT/HCPCS: 36415; 70553; 80048; 81001; 82040; 85025; 87077; 87086; 87186; 96365; 99285; A9575; J0696

== ENCOUNTER 2020-02-22 11:35 | Inpatient (IN) | payer MEDICARE ==
[~2020-02-22] VITALS: Ht 167.6 cm; Wt 76.6 kg
[~2020-02-22 11:35] MED LIST changes: +PANT40TA5 PO; -PANT40TA6 PO
--- NOTE | 2020-02-22 11:55 | NUR ---
PT CAME IN FOR NV AND "NOT BEING ABLE TO HOLD ANY FOOD DOWN" PER . PT HAS GIOBLASTOMA. PT IS COVERED IN MULTIPLE BRUISES ALL DIFFERENT STAGES. SAYS SHE HAS FALLEN OUT OF BED MULTIPLE TIMES. PT WAS HERE LAST WEEK AND BRUISING HAS GOTTEN WORSE. PT WAS ADMITTED LAST WEEK FOR UTI. IS PRIMARY HISTORIAN THE PT IS ALTERED FROM BRAIN TUMOR.
[2020-02-22] MEDS ORDERED: ONDANSETRON 2MG/ML, 2ML ONE (12:17)
[2020-02-22] MEDS ORDERED: ONDANSETRON 2MG/ML, 2ML IVPush ONE (12:30)
[2020-02-22] MEDS ORDERED: SODIUM CHLORIDE 0.9% 1,000ML IVBOLUS ONE (12:30)
[2020-02-22] MEDS ORDERED: SODIUM CHLORIDE FLUSH 10ML SYR IVF ONE (12:30)
[2020-02-22 12:41] LABS: BASOPHILS # (AUTO) 0.07 x10^3/uL (0-0.1); BASOPHILS % (AUTO) 1 % (0-1); EOSINOPHILS # (AUTO) 0.09 x10^3/uL (0-0.4); EOSINOPHILS % (AUTO) 1 % (1-7); LYMPHOCYTES # (AUTO) 1.02 x10^3/uL (1-3.4); LYMPHOCYTES % (AUTO) 16 % (22-44); MD NO; MEAN CORPUSCULAR HEMOGLOBIN 32.4 pg (27.0-34.8); MEAN CORPUSCULAR HGB CONC 32.8 g/dL (32.4-35.8); MEAN CORPUSCULAR VOLUME 98.8 fL (80-100); MEAN PLATELET VOLUME 6.9 fL (7.4-10.4); MONOCYTES # (AUTO) 0.69 x10^3/uL (0.2-0.8); MONOCYTES % (AUTO) 11 % (2-9); NEUTROPHILS # (AUTO) 4.38 x10^3/uL (1.8-6.8); NEUTROPHILS % (AUTO) 70 % (42-75); PLATELET COUNT 147 x10^3/uL (130-400); RED BLOOD COUNT 4.78 x10^6/uL (3.82-5.3); RED CELL DISTRIBUTION WIDTH 18.5 % (9.6-15.2)
[2020-02-22] MEDS ORDERED: CEFTRIAXONE PMX 1GM/50ML 50 ML IV ONE (13:00)
[2020-02-22 13:01] LABS: ALANINE AMINOTRANSFERASE 29 U/L (12-78); ANION GAP 8 mmol/L (5-15); CALCIUM 9.1 mg/dL (8.5-10.1); CHLORIDE 108 mmol/L (98-107)
[2020-02-22] MEDS ORDERED: CEFTRIAXONE PMX 1GM/50ML 50 ML ONE (13:02)
[2020-02-22 13:03] LABS: ALKALINE PHOSPHATASE 66 U/L (45-117); BILIRUBIN,TOTAL 0.5 mg/dL (0.2-1.0); TOTAL PROTEIN 7.2 g/dL (6.4-8.2)
--- NOTE | 2020-02-22 13:53 | NUR ---
PT TO CT AT THIS TIME
[2020-02-22] MEDS ORDERED: ONDANSETRON ODT 4 MG PO PRN (14:00)
[2020-02-22] MEDS ORDERED: ONDANSETRON 2MG/ML, 2ML IVPush PRN (14:00)
[2020-02-22] MEDS ORDERED: BISACODYL 10 MG SUPP PR PRN (14:00)
[2020-02-22] MEDS ORDERED: POLYETHYLENE GLYCOL 17 GM PACKET PO PRN (14:00)
[2020-02-22] MEDS ORDERED: LACTULOSE 20 GM/30 ML UDC PO PRN (14:00)
--- NOTE | 2020-02-22 14:20 | NUR ---
PT TO BE ADMITTED. EDUCATED ON PLAN OF CARE
[2020-02-22] MEDS ORDERED: ACETAMINOPHEN 650 MG/20.3 ML UDC PO PRN (15:00)
[2020-02-22 15:51] VITALS: BP 157/97
[2020-02-22] MEDS: D5%-0.45NACL+KCL 20MEQ 1,000 ML IV SCH (18:01)
[2020-02-22] MEDS: LACTULOSE 10 GM/15 ML UDC PO SCH ×2 (21:00→21:53)
[2020-02-22] MEDS: SIMVASTATIN 20 MG TABLET PO SCH ×2 (21:00→21:53)
[2020-02-22] MEDS ORDERED: LEVETIRACETAM 100 MG/ML, 5ML IV SCH (21:00)
[2020-02-22] MEDS: ZAFIRLUKAST 20 MG TABLET PO SCH ×2 (21:00→21:53)
[2020-02-22 21:45] VITALS: BP 166/107
[2020-02-22] MEDS: LEVETIRACETAM 100 MG/ML ORAL SOL PO SCH (21:53)
[2020-02-22] MEDS: FAMOTIDINE 20 MG/2 ML IVPush SCH (21:53)
[2020-02-22] MEDS: ENALAPRILAT 1.25 MG/ML, 2ML IVPush PRN (21:54)
[2020-02-23 01:41] VITALS: BP 141/92
[2020-02-23] MEDS: D5%-0.45NACL+KCL 20MEQ 1,000 ML IV SCH ×2 (05:38→18:15)
[2020-02-23 06:00] LABS: BASOPHILS # (AUTO) 0.06 x10^3/uL (0-0.1); BASOPHILS % (AUTO) 1 % (0-1); EOSINOPHILS # (AUTO) 0.09 x10^3/uL (0-0.4); EOSINOPHILS % (AUTO) 1 % (1-7); LYMPHOCYTES # (AUTO) 1.53 x10^3/uL (1-3.4); LYMPHOCYTES % (AUTO) 17 % (22-44); MD NO; MEAN CORPUSCULAR HEMOGLOBIN 32.3 pg (27.0-34.8); MEAN CORPUSCULAR HGB CONC 32.3 g/dL (32.4-35.8); MEAN CORPUSCULAR VOLUME 99.9 fL (80-100); MONOCYTES # (AUTO) 0.87 x10^3/uL (0.2-0.8); MONOCYTES % (AUTO) 10 % (2-9); NEUTROPHILS # (AUTO) 6.24 x10^3/uL (1.8-6.8); NEUTROPHILS % (AUTO) 71 % (42-75); PLATELET COUNT 142 x10^3/uL (130-400); RED BLOOD COUNT 4.56 x10^6/uL (3.82-5.3); RED CELL DISTRIBUTION WIDTH 18.6 % (9.6-15.2)
[2020-02-23 06:18] LABS: ANION GAP 7 mmol/L (5-15); CALCIUM 8.9 mg/dL (8.5-10.1); CHLORIDE 108 mmol/L (98-107)
[2020-02-23 06:21] LABS: CREATININE 0.93 mg/dL (0.55-1.02)
[2020-02-23] MEDS ORDERED: RIVAROXABAN 20 MG TABLET PO SCH (08:00)
[2020-02-23 08:37] VITALS: BP 155/106
[2020-02-23] MEDS ORDERED: DEXAMETHASONE 4 MG/ML, 1ML IVPush PRN (09:00)
[2020-02-23] MEDS: ZAFIRLUKAST 20 MG TABLET PO SCH (09:00)
[2020-02-23] MEDS ORDERED: DEXAMETHASONE 1 MG TABLET PO SCH (09:00)
[2020-02-23] MEDS: FAMOTIDINE 20 MG/2 ML IVPush SCH ×2 (09:00→22:01)
[2020-02-23] MEDS: LEVETIRACETAM 100 MG/ML ORAL SOL PO SCH (09:02)
[2020-02-23] MEDS: LACTULOSE 10 GM/15 ML UDC PO SCH (09:11)
[2020-02-23] MEDS ORDERED: CEFTRIAXONE PMX 1GM/50ML 50 ML IV SCH (13:00)
[2020-02-23 13:27] VITALS: BP 149/99
[2020-02-23 19:13] VITALS: BP 137/91
[2020-02-23] MEDS ORDERED: LEVETIRACETAM 100 MG/ML, 5ML IV SCH (21:00)
[2020-02-23] MEDS: LEVETIRACETAM 750 MG in SODIUM CHLORIDE 0.9% 100 ML IV SCH (21:58)
[2020-02-24 01:19] VITALS: BP 163/98
[2020-02-24] MEDS: D5%-0.45NACL+KCL 20MEQ 1,000 ML IV SCH (03:09)
[2020-02-24 07:53] LABS: ALBUMIN 2.7 g/dL (3.4-5.0); ANION GAP 4 mmol/L (5-15); CALCIUM 8.4 mg/dL (8.5-10.1); CHLORIDE 105 mmol/L (98-107); CREATININE 0.75 mg/dL (0.55-1.02)
[2020-02-24] MEDS: FAMOTIDINE 20 MG/2 ML IVPush SCH ×2 (08:26→21:46)
[2020-02-24] MEDS: ENOXAPARIN 40 MG/0.4 ML SQ SCH (08:26)
[2020-02-24] MEDS: LEVETIRACETAM 750 MG in SODIUM CHLORIDE 0.9% 100 ML IV SCH ×2 (08:26→21:46)
[2020-02-24 08:30] VITALS: BP 162/105
[2020-02-24] MEDS: ENALAPRILAT 1.25 MG/ML, 2ML IVPush PRN (12:00)
[2020-02-24 12:24] VITALS: BP 145/98
[2020-02-24] MEDS: D5%-LACTATED RINGERS 1,000 ML IV SCH ×2 (13:39→21:46)
[2020-02-24 18:55] VITALS: BP 142/94
[2020-02-25 00:25] VITALS: BP 157/96
[2020-02-25] MEDS: D5%-LACTATED RINGERS 1,000 ML IV SCH ×2 (05:21→18:44)
[2020-02-25 05:50] LABS: ANION GAP 8 mmol/L (5-15); CALCIUM 8.9 mg/dL (8.5-10.1); CHLORIDE 106 mmol/L (98-107)
[2020-02-25 05:52] LABS: CREATININE 0.85 mg/dL (0.55-1.02)
[2020-02-25 07:06] VITALS: BP 161/110
[2020-02-25] MEDS: ENALAPRILAT 1.25 MG/ML, 2ML IVPush PRN (07:48)
[2020-02-25] MEDS: ENOXAPARIN 40 MG/0.4 ML SQ SCH (08:38)
[2020-02-25] MEDS: FAMOTIDINE 20 MG/2 ML IVPush SCH ×2 (08:38→21:51)
[2020-02-25] MEDS ORDERED: SCOPOLAMINE 1MG PATCH TD ONE (09:00)
[2020-02-25] MEDS: LEVETIRACETAM 750 MG in SODIUM CHLORIDE 0.9% 100 ML IV SCH ×2 (09:51→21:51)
[2020-02-25 13:44] VITALS: BP 147/86
[2020-02-25 20:16] VITALS: BP 139/45
[2020-02-26 01:34] VITALS: BP 158/115
[2020-02-26] MEDS: ENALAPRILAT 1.25 MG/ML, 1ML IVPush PRN (02:09)
[2020-02-26 02:51] VITALS: BP 152/102
[2020-02-26] MEDS: D5%-LACTATED RINGERS 1,000 ML IV SCH ×2 (05:29→18:44)
[2020-02-26 05:37] LABS: ALBUMIN 2.7 g/dL (3.4-5.0); ANION GAP 7 mmol/L (5-15); CALCIUM 9.3 mg/dL (8.5-10.1); CHLORIDE 105 mmol/L (98-107)
[2020-02-26 05:39] LABS: CREATININE 0.98 mg/dL (0.55-1.02)
[2020-02-26 07:45] VITALS: BP 132/92
--- NOTE | 2020-02-26 09:10 | NUR ---
TF GOAL: JEVITY 1.2 @ 65ML/HR
[2020-02-26] MEDS: FAMOTIDINE 20 MG/2 ML IVPush SCH ×2 (10:18→20:48)
[2020-02-26] MEDS: ENOXAPARIN 40 MG/0.4 ML SQ SCH (10:18)
[2020-02-26] MEDS: LEVETIRACETAM 750 MG in SODIUM CHLORIDE 0.9% 100 ML IV SCH ×2 (10:18→21:54)
[2020-02-26 12:10] VITALS: BP 141/98
[2020-02-26] MEDS: DEXAMETHASONE 4 MG/ML, 1ML IVPush SCH (15:45)
[2020-02-26 18:49] VITALS: BP 127/83
[2020-02-27 01:06] VITALS: BP 147/99
[2020-02-27] MEDS ORDERED: POLYETHYLENE GLYCOL 17 GM PACKET NG ONE (06:30)
[2020-02-27] MEDS: D5%-LACTATED RINGERS 1,000 ML IV SCH (06:43)
[2020-02-27 06:58] VITALS: BP_SYST 148; BP_SYST 162; BP_SYST 169; BP_DIAS 110; BP_DIAS 88; BP_DIAS 92
[2020-02-27] MEDS: LEVETIRACETAM 750 MG in SODIUM CHLORIDE 0.9% 100 ML IV SCH (07:58)
[2020-02-27] MEDS: FAMOTIDINE 20 MG/2 ML IVPush SCH (07:58)
[2020-02-27] MEDS: ENOXAPARIN 40 MG/0.4 ML SQ SCH (07:58)
[2020-02-27] MEDS: DEXAMETHASONE 4 MG/ML, 1ML IVPush SCH (07:59)
[2020-02-27 11:41] VITALS: BP 147/88
[2020-02-27 12:32] VITALS: BP 148/97
[2020-02-27] MEDS: OMEPRAZOLE 20 MG CAPSULE.DR PO SCH (13:31)
[2020-02-27 19:34] VITALS: BP 151/97
[2020-02-27] MEDS: SIMVASTATIN 20 MG TABLET PO SCH (21:00)
[2020-02-27] MEDS: ZAFIRLUKAST 20 MG TABLET PO SCH (21:00)
[2020-02-27] MEDS: LEVETIRACETAM 100 MG/ML ORAL SOL PO SCH (23:42)
[2020-02-27] MEDS: LACTULOSE 10 GM/15 ML UDC PO SCH (23:42)
[2020-02-28 04:04] VITALS: BP_SYST 143; BP_SYST 151; BP_DIAS 90; BP_DIAS 97
[2020-02-28] MEDS ORDERED: ONDANSETRON 2MG/ML, 2ML IVPush PRN (05:30)
[2020-02-28] MEDS: OMEPRAZOLE 20 MG CAPSULE.DR PO SCH (05:35)
[2020-02-28 06:34] VITALS: BP 146/92
[2020-02-28] MEDS: D5%-0.9% NACL 1,000 ML IV SCH ×2 (08:51→22:30)
[2020-02-28] MEDS: ONDANSETRON 2MG/ML, 2ML IVPush PRN (08:54)
[2020-02-28] MEDS ORDERED: DEXAMETHASONE 4 MG/ML, 1ML IV SCH (09:00)
[2020-02-28] MEDS ORDERED: LEVETIRACETAM 750 MG in SODIUM CHLORIDE 0.9% 100 ML IV SCH (09:00)
[2020-02-28 09:57] LABS: BASOPHILS # (AUTO) 0.03 x10^3/uL (0-0.1); BASOPHILS % (AUTO) 0 % (0-1); EOSINOPHILS # (AUTO) 0.06 x10^3/uL (0-0.4); EOSINOPHILS % (AUTO) 1 % (1-7); LYMPHOCYTES # (AUTO) 1.43 x10^3/uL (1-3.4); LYMPHOCYTES % (AUTO) 21 % (22-44); MD NO; MEAN CORPUSCULAR HEMOGLOBIN 32.5 pg (27.0-34.8); MEAN CORPUSCULAR HGB CONC 32.9 g/dL (32.4-35.8); MEAN CORPUSCULAR VOLUME 98.7 fL (80-100); MEAN PLATELET VOLUME 6.7 fL (7.4-10.4); MONOCYTES # (AUTO) 0.68 x10^3/uL (0.2-0.8); MONOCYTES % (AUTO) 10 % (2-9); NEUTROPHILS # (AUTO) 4.79 x10^3/uL (1.8-6.8); NEUTROPHILS % (AUTO) 69 % (42-75); PLATELET COUNT 152 x10^3/uL (130-400); RED BLOOD COUNT 4.12 x10^6/uL (3.82-5.3); RED CELL DISTRIBUTION WIDTH 17.8 % (9.6-15.2)
[2020-02-28 10:03] LABS: ALANINE AMINOTRANSFERASE 42 U/L (12-78); ALBUMIN 2.6 g/dL (3.4-5.0); ANION GAP 7 mmol/L (5-15); CALCIUM 8.3 mg/dL (8.5-10.1); CHLORIDE 106 mmol/L (98-107); CREATININE 0.77 mg/dL (0.55-1.02)
[2020-02-28 10:05] LABS: ALKALINE PHOSPHATASE 67 U/L (45-117); BILIRUBIN,TOTAL 0.3 mg/dL (0.2-1.0); TOTAL PROTEIN 6.2 g/dL (6.4-8.2)
[2020-02-28] MEDS: FAMOTIDINE 20 MG/2 ML IVPush SCH ×2 (11:24→22:29)
[2020-02-28] MEDS: ENOXAPARIN 40 MG/0.4 ML SQ SCH (11:25)
[2020-02-28] MEDS: DEXAMETHASONE 4 MG/ML, 1ML IV SCH ×3 (13:30→19:59)
[2020-02-28 13:34] VITALS: BP_SYST 154; BP_SYST 162; BP_DIAS 112; BP_DIAS 99
[2020-02-28] MEDS: ENALAPRILAT 1.25 MG/ML, 1ML IVPush PRN (13:52)
[2020-02-28 14:25] VITALS: BP 145/87
[2020-02-28 18:17] LABS: MICROSCOPIC AUTO
[2020-02-28 19:50] VITALS: BP 126/79
[2020-02-28] MEDS: LEVETIRACETAM 1,000 MG in SODIUM CHLORIDE 0.9% 100 ML IV SCH (22:29)
[2020-02-29 02:02] VITALS: BP 149/92
[2020-02-29 06:52] VITALS: BP 165/117
[2020-02-29] MEDS: FAMOTIDINE 20 MG/2 ML IVPush SCH (07:32)
[2020-02-29] MEDS: DEXAMETHASONE 4 MG/ML, 1ML IV SCH ×2 (07:32→15:44)
[2020-02-29] MEDS: ENALAPRILAT 1.25 MG/ML, 1ML IVPush PRN (07:33)
[2020-02-29] MEDS: ENOXAPARIN 40 MG/0.4 ML SQ SCH (07:43)
[2020-02-29] MEDS: LEVETIRACETAM 1,000 MG in SODIUM CHLORIDE 0.9% 100 ML IV SCH (12:13)
[2020-02-29] MEDS: D5%-0.9% NACL 1,000 ML IV SCH (12:13)
[2020-02-29 14:30] VITALS: BP 149/97
[2020-02-29] MEDS ORDERED: SCOPOLAMINE 1MG PATCH TD PRN (17:00)
[2020-02-29] MEDS ORDERED: BISACODYL 5 MG EC TABLET PO PRN (17:00)
[2020-02-29] MEDS ORDERED: ATROPINE OPHTH SOLN 1%, 5ML PO PRN (17:00)
[2020-02-29] MEDS: MORPHINE SULFATE 4 MG/ML, 1ML IVPush PRN ×2 (17:55→21:24)
[2020-02-29] MEDS: ONDANSETRON 2MG/ML, 2ML IVPush PRN (17:56)
[2020-03-01] MEDS: D5%-0.9% NACL 1,000 ML IV SCH ×2 (00:43→13:58)
[2020-03-01] MEDS: MORPHINE SULFATE 4 MG/ML, 1ML IVPush PRN (01:23)
[2020-03-01] MEDS: ONDANSETRON 2MG/ML, 2ML IVPush PRN ×3 (07:59→23:57)
[2020-03-01 08:17] VITALS: BP 144/85
[2020-03-01 19:32] VITALS: BP 155/92
[2020-03-02 01:12] VITALS: BP 152/84
[2020-03-02] MEDS: D5%-0.9% NACL 1,000 ML IV SCH ×2 (03:12→13:48)
[2020-03-02] MEDS: ONDANSETRON 2MG/ML, 2ML IVPush PRN (04:42)
[2020-03-02 07:00] VITALS: BP 172/108
[2020-03-02 14:30] VITALS: BP 170/99
[2020-03-02 20:13] VITALS: BP 171/104
[2020-03-02 20:32] VITALS: BP 181/112
[2020-03-02] MEDS: ENALAPRILAT 1.25 MG/ML, 2ML IVPush PRN ×2 (21:48→22:42)
[2020-03-02 22:40] VITALS: BP 175/105
[2020-03-03 00:10] VITALS: BP 168/117
[2020-03-03] MEDS: ONDANSETRON 2MG/ML, 2ML IVPush PRN (01:13)
[2020-03-03] MEDS: D5%-0.9% NACL 1,000 ML IV SCH ×2 (03:14→17:43)
[2020-03-03] MEDS: LORazepam 2 MG/ML, 1ML IVPush PRN ×3 (03:22→18:55)
[2020-03-03] MEDS: MORPHINE SULFATE 4 MG/ML, 1ML IVPush PRN (20:49)
[2020-03-04] MEDS: D5%-0.9% NACL 1,000 ML IV SCH (09:00)
== END 2020-03-04 10:21 | disposition hospice, inpatient (51) | DRG 70 ==
LOC: ED 12:48 → INTOOBSV 12:53 → EDIP 12:53 → 3N 15:00 → 3WST 02-23 12:12 → OBSVTOIN 02-24 11:26 → 3WST 02-29 11:06
PROVIDERS: ADMIT Student in an Organized Health Care Education/Training Program; ATTEND Student in an Organized Health Care Education/Training Program
PROC: 0T9B70Z Drainage of Bladder with Drainage Device, Via Natural or Artificial Opening (ICD-10-PCS; principal; 2020-02-28)
DX: G93.40 Encephalopathy, unspecified (principal); E43 Unspecified severe protein-calorie malnutrition; N30.00 Acute cystitis without hematuria; Z16.29 Resistance to other single specified antibiotic; C71.9 Malignant neoplasm of brain, unspecified; E87.1 Hypo-osmolality and hyponatremia; S02.2XXA Fracture of nasal bones, initial encounter for closed fracture; W06.XXXA Fall from bed, initial encounter; B96.4 Proteus (mirabilis) (morganii) as the cause of diseases classified elsewhere; S01.21XA Laceration without foreign body of nose, initial encounter; S09.90XA Unspecified injury of head, initial encounter; E86.0 Dehydration; Z66 Do not resuscitate; F32.9 Major depressive disorder, single episode, unspecified; K59.00 Constipation, unspecified; Z68.27 Body mass index [BMI] 27.0-27.9, adult; Z86.718 Personal history of other venous thrombosis and embolism; Z86.73 Personal history of transient ischemic attack (TIA), and cerebral infarction without residual deficits; Z88.5 Allergy status to narcotic agent; Z88.2 Allergy status to sulfonamides; Y93.89 Activity, other specified; Y92.89 Other specified places as the place of occurrence of the external cause; Y99.8 Other external cause status
CPT/HCPCS: 36415; 70450; 70486; 74018; 80048; 80053; 81001; 82040; 82140; 83605; 83735; 84100; 85025; 95819; 96365; 96375; 99285; G0378; J0696; J1100; J1650; J1953; J2405; J7042; Q0162; J2060; J2270; J3480; J3490; J7030; J7121